=== PATIENT | male | born 1990 | race Caucasian/White ===

== ENCOUNTER 2021-03-13 18:49 | Emergency (ER) | payer SELFPAY ==
[~2021-03-13] VITALS: Ht 175.3 cm; Wt 72.6 kg
[2021-03-13] MEDS ORDERED: ONDANSETRON HCL/PF 4 MG/2 ML VIAL ONE (19:49)
[2021-03-13] MEDS ORDERED: MORPHINE SULFATE INJ 4 MG/ML DISP.SYRIN ONE ×2 (19:49→23:53)
[2021-03-13] MEDS ORDERED: MORPHINE SULFATE INJ 2 MG/ML DISP.SYRIN IV ONE (20:00)
[2021-03-13] MEDS ORDERED: ONDANSETRON HCL/PF 4 MG/2 ML VIAL IVP ONE (20:00)
[2021-03-13] MEDS ORDERED: IV NS 0.9% 1,000 ML BAG IV ONE (20:00)
--- NOTE | 2021-03-13 20:05 | NUR ---
[id number]. VOMMITING SINCE THIS MORNING. UPPER ABD PAIN. HX OF COLITIS. PATIENT ALERT AND ORIENTED X3. AMBULATORY WITH NON LABORED BREATHING.
--- NOTE | 2021-03-13 20:06 | NUR ---
TAXI D[employer]ER @ BEDSIDE
[2021-03-13 20:25] LABS: BASOPHILS % (AUTO) 0.4 % (0.0-2.0); EOSINOPHILS % (AUTO) 0.1 % (0.0-6.0); HEMATOCRIT 42 % (39-51); HEMOGLOBIN 13.8 g/dL (13.5-17.5); LYMPHOCYTES # (AUTO) 1.4 K/uL (0.8-4.8); LYMPHOCYTES % (AUTO) 14.2 % (20.0-44.0); MEAN CORPUSCULAR HGB CONC 33 g/dl (31.0-36.0); MEAN CORPUSCULAR VOLUME 91 fL (80-96); MONOCYTES # (AUTO) 0.7 K/uL (0.1-1.30); MONOCYTES % (AUTO) 6.6 % (2.0-12.0); NEUTROPHILS # (AUTO) 7.8 K/uL (1.8-8.9); NEUTROPHILS % (AUTO) 78.7 % (43.0-81.0); PLATELET COUNT (AUTO) 250 K/uL (150-450); RED BLOOD CELL COUNT(AUTO) 4.64 MIL/uL (4.5-6.0); WHITE BLOOD COUNT (AUTO) 9.9 K/uL (4.3-11.0)
[2021-03-13] MEDS ORDERED: HALOPERIDOL LACTATE INJ 5 MG/ML VIAL ONE (20:35)
[2021-03-13 20:39] LABS: CALCIUM, SERUM 9.3 mg/dL (8.5-10.1); CREATININE 1.2 mg/dL (0.6-1.3); POTASSIUM 3.8 mmol/L (3.5-5.1)
[2021-03-13 20:44] LABS: ALBUMIN 4.2 g/dL (3.4-5.0); BILIRUBIN,DIRECT 0.2 mg/dL (0.0-0.2); BILIRUBIN,TOTAL 1.5 mg/dL (0.2-1.0); TOTAL PROTEIN, SERUM 8.2 g/dL (6.4-8.2)
--- NOTE | 2021-03-13 20:53 | NUR ---
PT GOING TO CT
[2021-03-13] MEDS ORDERED: HALOPERIDOL LACTATE INJ 5 MG/ML VIAL IM ONE (21:00)
[2021-03-13 23:29] LABS: ABG BASE EXCESS -3.7 mmol/L; ABG PCO2 43.4 mmHg (35.0-45.0); ABG PH 7.327 (7.350-7.450); ABG PO2 43.4 mmHg (75.0-100.0); COHb 0.5 % (0.5-1.5); MetHb 0.6 % (0.0-1.5); SITE, ABG Other; VENT MODE, BG ROOM AIR
[2021-03-13 23:39] LABS: BILIRUBIN,URINE NEGATIVE (NEGATIVE); COLOR,URINE YELLOW (YELLOW); LEUKOCYTE ESTERASE ,URINE NEGATIVE (NEGATIVE); NITRITE, URINE NEGATIVE (NEGATIVE); PH,URINE 8.5 (5.0-8.0); PROTEIN,URINE NEGATIVE (NEGATIVE); UGLUCOSE >=1000 mg/dL (NEGATIVE); UROBILINOGEN,URINE 0.2 EU/dL (0.2)
[2021-03-13 23:42] LABS: BACTERIA,URINE None seen /HPF (None Seen); MUCUS,URINE Few /LPF (None Seen); RBC,URINE 0-2 /HPF (0-2); SQUAMOUS EPITHELIAL CELL,UR Few /HPF (None Seen); WBC,URINE 0-2 /HPF (0-3)
[2021-03-14] MEDS ORDERED: MORPHINE SULFATE INJ 2 MG/ML DISP.SYRIN IV ONE
[2021-03-14] MEDS ORDERED: IV NS 0.9% 1,000 ML BAG IV ONE
[2021-03-14] MEDS ORDERED: ONDA4TAB5 PO (00:24)
[2021-03-14 02:00] VITALS: BP 141/80
== END 2021-03-14 01:56 | disposition home or self-care (01) ==
LOC: ER 18:52
DX: R10.13 Epigastric pain (principal); R10.10 Upper abdominal pain, unspecified; R11.10 Vomiting, unspecified; E11.9 Type 2 diabetes mellitus without complications
CPT/HCPCS: 36415; 36600; 74176; 80048; 80076; 81001; 82010; 82140; 82803; 83605; 83690; 85025; 96361; 96374; 96375; 96376; 99284; J1630; J2270 ×2; J2405; J7030 ×3